=== PATIENT | female | born 1940 ===

== ENCOUNTER 2018-11-23 07:18 | Day surgery (SDC) | payer MEDICARE ==
[~2018-11-23 07:18] MED LIST: Buffered Lidocaine 1% SYRIN* 1 ML/SYRINGE INTRADERM ONE; Lactated Ringers 1000 ML Bag* 1,000 ML IV SCH
[2018-11-23] MEDS ORDERED: Bupivacaine 0.25% SDV* 30 ML ONE (08:16)
[2018-11-23] MEDS ORDERED: Midazolam* 1 MG/ML 2 ML VIAL (2 MG) ONE (08:29)
[2018-11-23] MEDS ORDERED: fentaNYL* 50 MCG/ML 2 ML VIAL (100 MCG VIAL) ONE (08:29)
[2018-11-23] MEDS ORDERED: Lidocaine 2% PF * 5 ML VIAL ONE (08:33)
[2018-11-23] MEDS ORDERED: Propofol* 10 MG/ML 20 ML BTL ONE (08:33)
[2018-11-23] MEDS ORDERED: Betamethasone INJ* 6 MG/ML 5 ML VIAL (30 MG) ONE (08:53)
[2018-11-23] MEDS ORDERED: Naloxone* 0.4 MG/ML 1 ML VIAL IV PRN (09:21)
[2018-11-23 09:22] VITALS: BP 147/79
--- NOTE | 2018-11-23 11:11 | OP ---
DATE OF OPERATION: 11/23/18 [facility] DATE OF : 42 SURGEON: Romaine Ball MD. FILLING HAND: ONOFRE Youngblood ANESTHESIOLOGIST: Dr. Fuentes. ANESTHESIA: Local MAC. PRE-OP DIAGNOSIS: Right carpal tunnel syndrome. POST-OP DIAGNOSIS: Right carpal tunnel syndrome. OPERATIVE PROCEDURE: Right open carpal tunnel release. INDICATIONS: Barbara has severe right carpal tunnel syndrome. It is causing her lot of pain and discomfort and numbness and tingling. We had talked about risks and benefits. She wanted to proceed. ESTIMATED BLOOD LOSS: 2 mL. COMPLICATIONS: None. FINDINGS: See and below. DESCRIPTION OF PROCEDURE: Barbara was seen in the preoperative holding area and the correct side, site, and procedure were identified. We came back to the operating room where the arm was numbed and then prepped and draped in usual fashion and timeout was performed. The arm was exsanguinated with the Esmarch and the tourniquet was inflated to 200 mmHg. A 2 to 3 cm longitudinal skin incision was made in. Dissection was carried down through the subcutaneous tissue and palmar fascia. The transverse carpal ligament was released just off the radial aspect of the hook of the hamate. The release was carried from distal to proximal. At proximal, I released the subcutaneous tissue and fascia and retracted this out of the way and then released the remainder of the transverse carpal ligament and the distal antebrachial fascia with the tenotomy scissors. Once I had confirmed the release and everything was looking good, you could clearly see an hourglass- shaped portion of the nerve right underneath the transverse carpal ligament. The wound was irrigated out. Skin was closed with 4-0 nylon suture. Soft dressing was applied and she was taken to the recovery room in stable condition. [id number]/[facility] #: [id number] [facility]
== END 2018-11-23 09:46 | disposition home or self-care (01) ==
LOC: OREAST 07:18
PROVIDERS: ATTEND Orthopaedic Surgery Hand Surgery
DX: G56.01 Carpal tunnel syndrome, right upper limb (principal); M05.131 Rheumatoid lung disease with rheumatoid arthritis of right wrist; M19.031 Primary osteoarthritis, right wrist; M10.9 Gout, unspecified; K21.9 Gastro-esophageal reflux disease without esophagitis; M79.7 Fibromyalgia; Z88.0 Allergy status to penicillin; Z88.8 Allergy status to other drugs, medicaments and biological substances; Z87.891 Personal history of nicotine dependence
CPT/HCPCS: J0702; J2250; J2704; J3010; J3490